=== PATIENT | male | born 2000 | race Caucasian/White ===

== ENCOUNTER 2023-03-14 03:06 | Emergency (ER) | payer OTHER ==
[2023-03-14 03:32] VITALS: BMI 23.9
[2023-03-14 04:18] LABS: BASO % 0.7 % (0-2.0); HEMATOCRIT 38.3 % (35.4-49); HEMOGLOBIN 12.5 GM/dL (11.7-16.9); MCH 27.6 pg (25.7-33.7); MCHC 32.7 g/dl (32.0-35.9); MEAN CELL VOLUME 84.5 fl (80-96); MEAN PLT VOLUME 6.6 fl (7.5-11.1); MONO % 11.2 % (3.8-10.2); NEUT % 53.1 % (42.8-82.8); PLATELET COUNT 263 10^3/uL (134-434); RBC 4.53 M/mm3 (4.00-5.60); RDW 14.2 % (11.9-15.9); WHITE BLOOD COUNT 5.8 K/mm3 (4.0-10.0)
[2023-03-14 04:28] LABS: INR 1.03 (0.83-1.09); PROTHROMBIN TIME (PATIENT) 11.9 SEC (9.7-13.0)
[2023-03-14 04:31] LABS: ACTIVATED PTT 29.5 SECONDS (25.2-36.5)
[2023-03-14 04:57] LABS: POTASSIUM 3.7 mmol/L (3.5-5.1)
[2023-03-14 04:59] LABS: ALBUMIN 3.5 g/dl (3.4-5.0); CALCIUM 9.1 mg/dL (8.5-10.1)
[2023-03-14 05:01] LABS: BLOOD UREA NITROGEN 14.6 mg/dL (7-18)
[2023-03-14 05:04] LABS: TOT PROT 7.1 g/dl (6.4-8.2)
[2023-03-14 05:05] LABS: BILIRUBIN,TOTAL 0.2 mg/dL (0.2-1)
[2023-03-14] MEDS ORDERED: DIVALPROEX SODIUM 500 MG TABLET E.C. PO ONE (05:39)
[2023-03-14] MEDS ORDERED: GABAPENTIN 100 MG CAPSULE PO ONE (05:39)
[2023-03-14] MEDS ORDERED: GABAPENTIN 100 MG CAPSULE ONE (05:47)
[2023-03-14] MEDS ORDERED: DIVALPROEX SODIUM 250 MG TABLET E.C. ONE (05:47)
[2023-03-14 06:32] LABS: EPI CELLS 2 /uL (0-25.1); HYALINE CASTS 0 /uL (0-3.1); URINE APPEARANCE CLEAR; URINE BACTERIA 3 /uL (0-1359); URINE BILIRUBIN NEGATIVE (NEGATIVE); URINE COLOR YELLOW; URINE GLUCOSE (UA) NEGATIVE (NEGATIVE); URINE KETONE NEGATIVE (NEGATIVE); URINE LEUK ESTERASE NEGATIVE (NEGATIVE); URINE NITRITE NEGATIVE (NEGATIVE); URINE PROTEIN NEGATIVE (NEGATIVE); URINE RBC 100 /uL (0-23.9); URINE UROBILINOGEN 0.2 mg/dL (0.2-1.0); URINE WBC 8 /uL (0-25.8)
[2023-03-14 07:01] VITALS: TEMP 98.1
[2023-03-14] MEDS ORDERED: VALPROATE SODIUM 500 MG/5 ML VIAL IVPB ONE (08:33)
[2023-03-14] MEDS ORDERED: VALPROATE SODIUM 500 MG/5 ML VIAL ONE (10:11)
[2023-03-14 12:31] VITALS: BP 99/53; PULSE 68; RESP 15
== END 2023-03-14 12:31 | disposition home or self-care (01) ==
LOC: JER 03:06
PROC: 3E033GC Introduction of Other Therapeutic Substance into Peripheral Vein, Percutaneous Approach (ICD-10-PCS; principal; 2023-03-14)
DX: R56.9 Unspecified convulsions (principal); R41.82 Altered mental status, unspecified; Z20.822 Contact with and (suspected) exposure to COVID-19
CPT/HCPCS: 0241U-QW; 36415; 70450-TC; 71045-TC-FY; 80053; 80061; 80186; 81003; 82550; 83036; 83605; 84484; 85025; 85610; 85730; 86850; 86900; 86901; 87086; 93005; 93010; 99285-25